=== PATIENT | female | born 1945 | race Caucasian/White ===

== ENCOUNTER → 2020-10-22 08:07 | Outpatient (CLI) | payer MEDICARE, SELFPAY ==
--- NOTE | ~2020-10-22 | XR_ITS ---
EXAMINATION: XR lumbar spine 2-3V DATE: 10/22/2020 09:33 INDICATION: Low back pain TECHNIQUE: Anteroposterior and lateral views of the lumbar spine, and cone-down lateral view of the l umbosacral junction were obtained. COMPARISON: Lumbar spine MR dated 07/16/2013 FINDINGS: 2 mm retrolisthesis L1 on L2 and 1 mm retrolisthesis L2 on L3 and L3 on L4. Vertebral body heights ar e normal. Moderate to severe disc height loss with vacuum phenomena and degenerative endplate changes at L1-L2. Moderate disc height loss at L4-L5. Mild disc height loss at the remaining lumbar levels. Mild to moderate disc height loss in the visualized lower thoracic spine. Moderate lower lumbar facet osteoarthritis. Mild bilateral sacroiliac osteoarthritis. Bilateral total hip arthroplasties. Cholec ystectomy clips at the gallbladder fossa. Lung bases are clear. IMPRESSION: 1. Interval progression in still moderate thoracolumbar spondylosis. Reviewed, dictated and finalized at location A.
== END ==
PROVIDERS: PCP Nurse Practitioner; Visit Provider Nurse Practitioner
DX: M54.5 Low back pain (principal); M47.895 Other spondylosis, thoracolumbar region
CPT/HCPCS: 72100

== ENCOUNTER → 2021-01-16 13:56 | Outpatient (CLI) | payer MEDICARE, SELFPAY ==
--- NOTE | ~2021-01-16 | XR_ITS ---
XR knee RT 3V DATE: 01/16/2021 14:56 INDICATION: Right knee pain TECHNIQUE: Stephens and standing AP and lateral views COMPARISON: None FINDINGS: Diffuse osteopenia. There is severe tricompartment osteoarthritis, most severe at the medial and patellofemoral compartme nts. There is mild to moderate lateral subluxation of the femoral tibial joint. No fracture or dislocation, periosteal reaction or bone destruction is detected. IMPRESSION: Severe tricompartment osteoarthritis Reviewed, dictated and finalized at location A.
== END ==
PROVIDERS: PCP Internal Medicine; Visit Provider Nurse Practitioner
DX: M25.561 Pain in right knee (principal); M17.11 Unilateral primary osteoarthritis, right knee
CPT/HCPCS: 73562

== ENCOUNTER → 2021-08-30 10:25 | Outpatient (CLI) | payer MEDICARE, SELFPAY ==
[2021-08-30 12:49] LABS: Influenza A QL RT-PCR Negative (Negative); Influenza B QL RT-PCR Negative (Negative); SARS-CoV-2 RNA PCR Negative
== END ==
PROVIDERS: PCP Internal Medicine; Visit Provider Internal Medicine
DX: R68.89 Other general symptoms and signs (principal); Z20.822 Contact with and (suspected) exposure to COVID-19
CPT/HCPCS: 87502; C9803; U0003; U0005

== ENCOUNTER 2022-05-28 12:30 | Outpatient (RCR) | payer MEDICARE, SELFPAY ==
--- NOTE | 2022-05-02 14:40 | PTOPEVAL1 ---
Assessment and note entered by Josiah Serrano, PT, DPT Evaluation Information Assessment Status Evaluation Diagnosis Leg pain Onset 2 weeks Subjective Information Pt states she has had both hips replaced and knows she has to have her knees replaced. She reports lateral knee and calf pain on her L leg. She reports calf pain bilaterally. She states she has had this pain before and it has always gone away before. She states her knee pain is worse in the morning, she also had difficultly and pain getting up/down from a seat and in/out of her car. Reported Pain Level Pain Score 7,5: Self Report Assessment PT Clinical Summary Rekha Dyson presents to therapy today for her initial evaluation with a diagnosis of pain in the legs. Today she reports lower leg and knee pain. She demonstrates active flexion to ~85 ramón and active extension to lacking ~15 deg ramón. She ambulated with lack of terminal knee extension and decreased knee flexion ramón, she demonstrates a mild R hip circumduction pattern. She also demonstrates generalized weakness in her BLEs. She is able to perform the 5xSTS test without UE support in 28s, but this does place her at an increased risk of falls. Skilled physical therapy services are indicated to address the deficts noted above, to manage pain, to improve strength, and to promote improved functional mobility. Plan of Care Interventions Electrical Stimulation,Gait Training,Hot Pack/Cold Pack,Manual Therapy,Neuro Re-education,Patient/ Caregiver Educati,Therapeutic Activities, Therapeutic Exercise PT Services Indicated Yes Treatment Frequency and 2x/wk for 4 wks Duration These treatments will address the objective and functional deficits as defined above. The patient will be advanced safely and appropriately in order for the patient to progress towards his/her prior level of function. Additional exercises will be introduced and as well as a comprehensive home exercise program upon discharge, if needed, ?to ensure carryover of functional gains achieved in the clinic. This treatment plan has been reviewed and agreement upon by the patient.
--- NOTE | 2022-05-28 13:09 | PTOPDC ---
Assessment and note entered by Josiah Serrano, PT, DPT Evaluation Information Assessment Status Discharge Diagnosis Leg pain, knee pain Onset 2 weeks Subjective Information Pt states her thighs are feeling better today, but her knees are still bothering her. Pt reports 50% improvement in overall symptoms. She states she feels like she has improved her knowledge a lot. Reported Pain Level Pain Score 0,0: Self Report Assessment PT Clinical Summary Rekha Dyson presents to therapy today for her progress report following 7 visits of skilled therapy to treat her diagnosis of ramón LE pain. She she continues to demonstrates decreased active and passive ROM as well a decreased BLE strength, these appear to be limited by pain. She has improved her 2 min walk distance and decreased her speed during the 5xSTS but still remains at an increased risk for falls. Karis would like to continue her HEP at home and be discharged at this time. She states she is too busy at this time to continue coming to therapy regularly. She will be discharged at this time. Plan of Care Interventions Electrical Stimulation,Gait Training,Hot Pack/Cold Pack,Manual Therapy,Neuro Re-education,Patient/ Caregiver Educati,Therapeutic Activities, Therapeutic Exercise Treatment Frequency and to be discharged Duration
== END 2022-05-29 13:20 | disposition home or self-care (01) ==
LOC: ANHGOSHPT 12:30
PROVIDERS: PCP Internal Medicine; Visit Provider Internal Medicine
DX: M79.605 Pain in left leg (principal)
CPT/HCPCS: 97110; 97112; 97140; 97161

== ENCOUNTER 2022-07-07 11:48 | Emergency (ER) | payer MEDICARE, SELFPAY ==
[2022-07-07 12:41] VITALS: BP 166/78; PULSE 102; RESP 16; TEMP 38.2; O2SAT 98
--- NOTE | 2022-07-07 13:23 | ED.GENADULT ---
HPI - General Adult General Chief complaint: Upper Respiratory Infection Stated complaint: Fever, Sore Throat Source: patient Mode of arrival: ambulatory Limitations: no limitations History of Present Illness HPI narrative: patient presents for evaluation of fever and sore throat since yesterday. T-max 103.2?. She took some tylenol yesterday for her symptoms which seemed to help with her fever. she further endorses sinus congestion, mild occasional cough, and nasal drainage. No recent sick contacts to her knowledge. She does not smoke. She has never had COVID. No chills, vomiting, diarrhea or SOB. Related Data Home Medications Medication Instructions Recorded Confirmed aspirin 81 mg tablet,delayed 81 mg PO DAILY 08/16/20 07/07/22 release (Adult Aspirin Regimen) omeprazole 20 mg capsule,delayed 20 mg PO DAILY 08/16/20 07/07/22 release mirabegron 25 mg tablet,extended 25 mg PO DAILY PRN Bladder Spasms 10/03/21 07/07/22 release 24 hr (Myrbetriq) Allergies Allergy/AdvReac Type Severity Reaction Status Date / Time erythromycin base Allergy Mild Palpitation Verified 07/07/22 12:29 s ZEPHREX Allergy Unknown Palpitation Uncoded 05/10/22 15:00 s Review of Systems Review of Systems: CONSTITUTIONAL: Reports fever. Denies chills, or sweats. EYES: Denies visual changes, redness, or discharge. ENT: Reports sore throat, sinus congestion/drainage. CARDIOVASCULAR: Denies chest pain, palpitations, or edema. RESPIRATORY: Denies cough or dyspnea. GASTROINTESTINAL: Denies abdominal pain, nausea, vomiting, or diarrhea. GENITOURINARY: Denies dysuria or hematuria. SKIN: Denies rash or itching. MUSCULOSKELETAL: Denies back pain, joint pain, or myalgia. NEUROLOGIC: Denies headache, numbness, dizziness, or weakness. PSYCHIATRIC: Denies anxiety or depression. [facility] Past Medical History Medical History (Updated 07/07/22 @ 13:26 by Krzysztof Ricks, [employer]ADER, ) Arthritis BMI greater than 40 Chronic GERD Constipation Esophageal diverticulum Essential hypertension H/O: rheumatic fever Knee effusion, right Left knee DJD Low back pain Osteoarthritis Right knee DJD Right knee pain Skin lesion SOB (shortness of breath) Wears glasses Surgical History Surgical History No pertinent past surgical history Family History Family History (Updated 07/07/22 @ 13:26 by Krzysztof Ricks [facility], ) Mother Family history non-contributory Social History Social History Smoking status: Never smoker Second hand tobacco smoke exposure: Yes Alcohol intake: never Substance use: never Gender identity (if verbalized by the patient): Female Spiritual care concerns: No Exam Narrative: GENERAL: Well-appearing, well-nourished, and in no acute distress. HEAD: Normocephalic, atraumatic. EYES: PERRLA and EOMI. there is tearing noted from bilateral eyes ENT: Nares clear, no rhinorrhea or epistaxis. Mucous membranes moist. Posterior pharyngeal erythema without exudate. Uvula is midline.. Bilateral TMs pearly schmitz nonbulging NECK: Supple. No adenopathy or masses. No carotid bruits or JVD CHEST: Clear to auscultation. No respiratory distress. No wheezes rales or rhonchi HEART: Regular rate and rhythm. No murmur heard. Normal peripheral pulses. ABDOMEN: Soft, nontender, nondistended, normal active bowel sounds. EXTREMITIES: Normal range of motion. No edema. SKIN: Warm, dry, no rash. NEURO: No focal deficits. Alert and oriented x3. PSYCH: Normal mood and affect. Course Course Emergency Course: This is a 77-year-old female who presented for evaluation of sick symptoms. Strep and flu were negative. Will treat with Augmentin due to the nature of her symptoms. She should follow up outpatient for further evaluation and treatment and go to the ER for worsening symptoms. Pt in agreement wit
== END 2022-07-07 13:43 | disposition home or self-care (01) ==
PROVIDERS: Emergency Provider Nurse Practitioner; PCP Internal Medicine
DX: J02.9 Acute pharyngitis, unspecified (principal); M19.90 Unspecified osteoarthritis, unspecified site; K21.9 Gastro-esophageal reflux disease without esophagitis; I10 Essential (primary) hypertension; M17.0 Bilateral primary osteoarthritis of knee; Z79.82 Long term (current) use of aspirin
CPT/HCPCS: 87081; 87804; 87880; 99213; G0463

== ENCOUNTER → 2022-07-17 14:39 | Outpatient (CLI) | payer MEDICARE, SELFPAY ==
--- NOTE | ~2022-07-17 | XR_ITS ---
EXAMINATION: XR chest 2V DATE: 07/17/2022 14:51 INDICATION: Cough and shortness of breath. TECHNIQUE: Frontal and lateral views of the chest were obtained. COMPARISON: Chest 2 views 08/20/2019 FINDINGS: The chest demonstrates clear lungs without pneumonia, pleural effusion, or pneumothorax. Th e heart size is normal. IMPRESSION: 1. No acute cardiopulmonary disease. Reviewed, dictated and finalized at location A. [employer]EMENT SCIENTIST
== END ==
PROVIDERS: PCP Internal Medicine; Visit Provider Internal Medicine
DX: R05.9 Cough, unspecified (principal)
CPT/HCPCS: 71046

== ENCOUNTER → 2023-04-25 10:49 | Outpatient (CLI) | payer MEDICARE, SELFPAY ==
--- NOTE | ~2023-04-25 | XR_ITS ---
Lumbosacral Spine: AP, oblique, and lateral views Clinical History: Pain Findings: The normal lordotic curve is maintained. No fracture evident. There is 2 mm retrolisthesis of L1 over L2. There is 2 mm anterolisthesis of L3 over L4. There are mild to moderate facet joint de generative changes lower lumbar spine. There is advanced degenerative disc narrowing at L1-L2. The sa croiliac joints are normally outlined. Impression: Degenerative spondylosis, as detailed above, similar to prior exam. Reviewed, dictated and finalized at location M. Impression: Degenerative spondylosis, as detailed above, similar to prior exam.
--- NOTE | ~2023-04-25 | XR_ITS ---
AP and oblique views of the SI joints CLINICAL HISTORY: Back pain FINDINGS: Bilateral SI joints are unremarkable. No erosive or sclerotic change. No definite degenerat tera change. Bilateral hip arthroplasties are present. Soft tissues are unremarkable. IMPRESSION: No significant abnormality of the SI joints. Reviewed, dictated and finalized at location .
--- NOTE | ~2023-04-25 | XR_ITS ---
AP and lateral views of the right hip Clinical history: Pain Findings: No acute fracture or dislocation is seen. Right hip arthroplasty in place. No hardware comp lication evident. Soft tissues are unremarkable. Impression: No acute abnormality seen. Right hip arthroplasty in place. Reviewed, dictated and finalized at location . Impression: No acute abnormality seen. Right hip arthroplasty in place.
== END ==
PROVIDERS: PCP Family Medicine; Visit Provider Family Medicine
DX: M54.50 Low back pain, unspecified (principal); M25.551 Pain in right hip; M47.896 Other spondylosis, lumbar region
CPT/HCPCS: 72110; 72202; 73502

== ENCOUNTER 2023-05-22 15:03 | Outpatient (CLI) | payer MEDICARE, SELFPAY ==
--- NOTE | ~2023-05-22 | MM_ITS ---
EXAMINATION: MM screening [facility] BI w kandi HISTORY: Screening TECHNIQUE: Craniocaudal and mediolateral oblique 3-D tomosynthesis images were obtained and synthetic 2-D images were generated. CAD analysis was submitted and interpreted. COMPARISON: Comparison to multiple prior studies sequentially, with oldest reviewed study dated 05/05. BREAST PARENCHYMAL COMPOSITION: There are scattered areas of fibroglandular density. FINDINGS: There is no evidence of suspicious mass, calcification, or architectural distortion to sugg est malignancy in either breast. There has been no suspicious interval change. IMPRESSION: 1. No mammographic evidence of malignancy. 2. Recommend routine screening mammography in one year. BI-RADS Category 1: Negative Reviewed, dictated and finalized at location A.
== END 2023-05-22 15:04 | disposition home or self-care (01) ==
LOC: ANHIMG 15:06
PROVIDERS: PCP Family Medicine; Visit Provider Family Medicine
DX: Z12.31 Encounter for screening mammogram for malignant neoplasm of breast (principal)
CPT/HCPCS: 77063; 77067

== ENCOUNTER 2023-06-07 10:51 | Outpatient (CLI) | payer MEDICARE, SELFPAY ==
--- NOTE | ~2023-06-07 | US_ITS ---
EXAMINATION: US venous doppler [facility] DATE: 06/07/2023 11:29 INDICATION: Left lower limb swelling TECHNIQUE: Grayscale ultrasound images without and with compression and Doppler ultrasound images of the left lower extremity veins were obtained. COMPARISON: None. FINDINGS: The visualized portions of left common femoral vein, profunda (deep) femoral vein, femoral vein, popl iteal vein, peroneal veins, posterior tibial veins, gastrocnemius vein and greater saphenous vein out flow are patent. IMPRESSION: 1. No deep venous thrombosis in the left lower limb. Reviewed, dictated and finalized at location A.
== END 2023-06-07 10:52 | disposition home or self-care (01) ==
PROVIDERS: PCP Family Medicine; Visit Provider Nurse Practitioner
DX: M79.89 Other specified soft tissue disorders (principal)
CPT/HCPCS: 93971

== ENCOUNTER 2023-08-13 13:27 | Outpatient (CLI) | payer MEDICARE, SELFPAY ==
--- NOTE | 2023-08-13 13:34 | ECHO_ITS ---
Patient Info Name: Rekha Sales Age: 78 years : 1945 Gender: Female Ht: 62 in Wt: 240 lbs BSA: 2.25 m2 HR: 93 bpm BP: 171 / 85 mmHg Heart Rhythm: Sinus Rhythm Technical Quality: Fair Exam Date: 08/13/2023 1:38 PM Exam Location: Echo Lab Patient Status: Outpatient Admit Date: 08/13/2023 Staff Ordering Physician: Tatum Witt APRN Remarketing Rep: Patti Lamb RDCS Attending Provider: Tatum Witt APRN Referring Physician: Miryam CHACON; Exam Type: CA echo doppler color flow Study Info Indications - Edema Complete two-dimensional, color flow and Doppler transthoracic echocardiogram is performed. Summary 1. Complete two-dimensional, color flow and Doppler transthoracic echocardiogram is performed. 2. Left ventricular chamber dimension is normal. 3. Left ventricular systolic function is hyperdynamic, estimated at >70%. 4. The left ventricular diastolic function is grade I diastolic dysfunction. 5. E/e' 11 is mildly elevated. 6. There is mild aortic valve sclerosis. 7. The mitral valve has moderately calcified annulus. 8. No pulmonary hypertension, estimated pulmonary arterial systolic pressure is 21 mmHg. Left Ventricle E/e' 11 is mildly elevated. Left ventricular chamber dimension is normal. Left ventricular systolic function is hyperdynamic, estimated at >70%. The left ventricular diastolic function is grade I diastolic dysfunction. Right Ventricle Right ventricular chamber dimension is normal. Right ventricular systolic function is normal. Left Atria Left atrial chamber dimension is normal. Right Atria Right atrial chamber dimension is normal. Aortic Valve The aortic valve is trileaflet. There is mild aortic valve sclerosis. There is no aortic valve stenosis. There is no aortic valve regurgitation. Pulmonic Valve There is no pulmonic regurgitation. Mitral Valve The mitral valve has moderately calcified annulus. There is no mitral valve stenosis. There is no mitral valve regurgitation. Tricuspid Valve There is no tricuspid valve regurgitation. No pulmonary hypertension, estimated pulmonary arterial systolic pressure is 21 mmHg. Pericardium/Pleural There is no pericardial effusion. Inferior Vena Cava Normal inferior vena cava with >50% collapse upon inspiration consistent with normal right atrial pressure, 5 mmHg. Aorta The aortic root size at the sinus of Valsalva is normal. Left Ventricular Outflow Tract Name Value Normal LVOT 2D LVOT Diameter 2.0 cm LVOT Doppler LVOT Peak Gradient 4 mmHg LVOT Mean Gradient 2 mmHg LVOT VTI 19 cm LVOT VTI/AV VTI Ratio 0.7 LVOT Stroke Volume 56 ml LVOT CO 4.4 l/min LVOT CI 2.0 l/min/m2 Pulmonic Valve Name Value Normal PV Doppler PV Peak Gradient
== END 2023-08-13 13:28 | disposition home or self-care (01) ==
PROVIDERS: PCP Family Medicine; Visit Provider Nurse Practitioner Family
DX: R60.0 Localized edema (principal); I73.9 Peripheral vascular disease, unspecified; M79.89 Other specified soft tissue disorders; Z86.79 Personal history of other diseases of the circulatory system
CPT/HCPCS: 93306

== ENCOUNTER 2024-06-06 11:21 | Emergency (ER) | payer MEDICARE, SELFPAY ==
[2024-06-06 11:32] VITALS: BP 154/87; PULSE 76; RESP 16; TEMP 36.7; O2SAT 100
--- NOTE | 2024-06-06 11:37 | ED_ITS ---
HPI - URI/Sore Throat General Chief Complaint: Upper Respiratory Infection Stated Complaint: cough Time Seen by Provider: 06/06/24 11:39 Source: patient Mode of arrival: ambulatory Limitations: no limitations History of Present Illness HPI Narrative: 79-year-old female presented for complaint of a cough for about 2 weeks, started with nasal congestion and pressure over the past week. Denies shortness of breath, wheezing nausea, vomiting, diarrhea, or fever. Taking Cough&Cold medication. Related Data Home Medications Medication Instructions Recorded Confirmed aspirin 81 mg tablet,delayed 81 mg PO DAILY 08/16/20 06/06/24 release (Adult Aspirin Regimen) omeprazole 20 mg capsule,delayed 20 mg PO DAILY 10/15/23 06/06/24 release Allergies Allergy/AdvReac Type Severity Reaction Status Date / Time erythromycin base Allergy Mild Palpitation Verified 06/06/24 11:38 s ibuprofen AdvReac Other Verified 06/06/24 11:38 ZEPHREX Allergy Unknown Palpitation Uncoded 04/21/24 07:49 s Review of Systems Review of Systems: CONSTITUTIONAL: Denies body aches, fever, chills, or sweats. EYES: Denies visual changes, redness, or discharge. ENT: reports rhinorrhea, congestion, sore throat, or otalgia. CARDIOVASCULAR: Denies chest pain, palpitations, or edema. RESPIRATORY: Reports cough, denies sob, wheezing. GASTROINTESTINAL: Denies abdominal pain, nausea, vomiting, or diarrhea. NEUROLOGIC: Denies headache All systems reviewed & are unremarkable except as noted in HPI and below PMFSH Past Medical History Medical History Arthritis BMI greater than 40 Chronic GERD Constipation Esophageal diverticulum Essential hypertension H/O: rheumatic fever Knee effusion, right Left knee DJD Low back pain Osteoarthritis Right knee DJD Right knee pain Skin lesion SOB (shortness of breath) Wears glasses Surgical History Surgical History No pertinent past surgical history Family History Family History Mother Family history non-contributory Social History Social History Smoking status: Never smoker Second hand tobacco smoke exposure: Yes Alcohol intake: never Substance use: never Substance use type: does not use Lack of Transportation: No Lack of Food: Never True Current Housing: I Have Housing Concerned About Future Housing: No Difficulty Paying Gas/Electric Bills: No Difficulty Paying for Meds: No Currently Unemployed: No Education: Trade/Vocational Certificate Difficulty w/ Childcare or Family Care: No Gender identity (if verbalized by the patient): Female Spiritual care concerns: No Comments At time of signature, I have reviewed and agree with nursing past medical, surgical, social and family history unless otherwise noted. Please see nursing chart for further information. There is no relevant family history pertinent to the presenting complaint Exam Narrative: GENERAL: Well-appearing, in no acute distress. EYES: EOMI. No redness or drainage. Conjunctivae normal. ENT: Mucous membranes pink and moist. Nasal congestion noted. TMs normal bi laterally. Throat normal. Uvula midline. NECK: Normal AROM. Supple. CHEST: No respiratory distress. Lungs clear to all portillo. Occasional moist nonproductive cough noted HEART: Regular rate and rhythm. No murmur appreciated. SKIN: Warm, dry, no rash. Capillary refill normal. Normal skin turgor. NEURO: Alert and oriented x3. Gait steady with cane PSYCH: Normal affect. Course Course Emergency Course: Patient is aware of diagnosis, understands and agrees to treatment plan. Antic ipatory guidance given. Patient agrees to follow-up as directed and is aware of reasons to seek care at the emergency department. Portions of this record may have been created with voice recognition software Level of Care: Express Care Visit Vital Signs Vital signs: Vital Signs Temperature 98.1 F 06/06/24 11:32 Pulse Rate 76 06/06/24 11:32 Respiratory Rate 16 06/06/24 11:32 Blood Pressure 154/87 H 06/06/24 11:32 Pulse Oximetry 100 06/06/24 11:32 Temperature 98.1 F 06/06/24 11:32 Pulse Rate 76 06/06/24 11:32 Respiratory Rate 16 06/06/24 11:32 Blood Pressure 154/87 H 06/06/24 11:32 Pulse Oximetry 100 06/06/24 11:32 MDM - URI/Sore Throat MDM Narrative Medical decision making narrative: Discussed physical exam findings. Advised supportive measures and signs/symptoms to go to the ER. Pt is appropriate for outpt treatment and f/u. Differential Diagnosis Differential diagnosis: Likely upper respiratory infection, otitis media, sinusitis, viral infection, bronchitis and pharyngitis Discharge Plan Discharge Clinical Impression: Sinusitis Patient Disposition: Home, Self-Care Condition: Stable Instructions: Antibiotic Form, Sinusitis (ED) Additional Instructions: Take antibiotic as directed Recommend Flonase spray and Zyrtec (or Claritin/Susana) over the counter Cough syrup may cause drowsiness; avoid driving or take it at night time. Coricidin HBP if you have hypertension Tylenol 1000mg every 8 hours as needed for pain Symptomatic treatment includes: rest, fluids, and increase humidity of the air at home. Follow up with your primary care provider in 1 week. Go to the ER for worsening symptoms or concerns. Prescriptions: New amoxicillin-pot clavulanate 875-125 mg tablet 1 tablet PO Q12H 7 Days Qty: 14 0RF No Action aspirin [Adult Aspirin Regimen] 81 mg tablet,delayed release (DR/EC) 81 mg PO DAILY omeprazole 20 mg capsule,delayed release(DR/EC) 20 mg PO DAILY lisinopril 20 mg tablet 20 mg PO DAILY Qty: 90 1RF furosemide 40 mg tablet 40 mg PO QAM PRN (Reason: edema) Qty: 90 1RF cholecalciferol (vitamin D3) 1,250 mcg (50,000 unit) capsule 1,250 mcg PO WEEKLY Qty: 14 1RF Follow-up/Referrals: Hal Sutton MD [Primary Care Provider] -
== END 2024-06-06 11:57 | disposition home or self-care (01) ==
PROVIDERS: Emergency Provider Nurse Practitioner Family; PCP Family Medicine
DX: J32.9 Chronic sinusitis, unspecified (principal); K21.9 Gastro-esophageal reflux disease without esophagitis; I10 Essential (primary) hypertension; M17.0 Bilateral primary osteoarthritis of knee; Z79.82 Long term (current) use of aspirin
CPT/HCPCS: 99213; G0463